=== PATIENT | female | born 1955 | race American Indian/Alaskan Native ===

== ENCOUNTER 2017-01-05 10:12 | Outpatient (CLI) | payer MEDICARE ==
[2017-01-05] MEDS ORDERED: PROVENTIL IH NR (10:42)
--- NOTE | 2017-01-08 03:29 | Pulmonary Function Test ---
SPIROMETRY: FVC 1.47 liters, which is 54% of predicted. FEV1 is 1.17 liters, which is 55% of predicted. FEV1/FVC ratio is 79 and the patient's FEF 25-75% is 1.19 liters/second, which is 52% of predicted. MVV is 37% of predicted. The patient's TLC 5.53, which is 107% of predicted. The patient's low vital capacity is 1.57 which is 58% of predicted, RV is 195 and patient's DLCO is 55% of the predicted. IMPRESSION: 1. Appears there is an obstruction as indicated by the hyperinflation, has decrease in slow vital capacity and increase in TLC and increase in residual volume. 2. The patient has significant improvement in the FEV1 in the post-bronchodilator. 3. Decrease in diffusion. 4. The patient has increase in airway resistance. JOB# [id number] DARREN/MARKUS
== END 2017-01-05 10:13 | disposition home or self-care (01) ==
LOC: PF 10:12
PROVIDERS: ATTEND Internal Medicine Critical Care Medicine
DX: J44.1 Chronic obstructive pulmonary disease with (acute) exacerbation (principal)
CPT/HCPCS: 94060; 94640; 94726; 94729